=== PATIENT | male | born 1960 | race Caucasian/White ===

== ENCOUNTER → 2025-10-09 13:25 | Outpatient (REF) | payer MEDICARE, OTHER, SELFPAY | LOC: HWRAD 13:25 | PROVIDERS: ATTENDING PHYSICIAN Orthopaedic Surgery Hand Surgery | DX: M25.511 Pain in right shoulder (principal) | CPT/HCPCS: 73200 ==

== ENCOUNTER 2025-11-15 06:16 | Day surgery (SDC) | payer MEDICARE, OTHER, SELFPAY ==
[2025-10-23 12:11] LABS: Hematocrit 43.7 % (39.0-52.0); Hemoglobin 14.1 g/dL (13.0-18.0); Mean Corp Hgb Conc. 32.3 g/dL (33.0-37.0); Mean Corpuscular Volume 89.4 fL (80.0-94.0); Platelet Count 189 10^3/uL (130-400); Red Cell Dist. Width 12.8 % (11.5-14.5)
[2025-10-23 13:01] LABS: ALT (SGPT) 35 U/L (0-50); AST (SGOT) 25 U/L (17-59); Albumin 4.5 g/dl (3.5-5.0); Alkaline Phosphatase 69 U/L (38-126); Blood Urea Nitrogen 22 mg/dl (9-20); Calcium 9.9 mg/dl (8.4-10.2); Carbon Dioxide 31 mmol/L (22-30); Chloride 105 mmol/L (98-107); Glucose 83 mg/dl (70-99); Potassium 5.1 mmol/L (3.5-5.1); Sodium 141 mmol/L (135-145); Total Protein 7.7 g/dl (6.3-8.2); eGFR > 60.00
[2025-10-23 14:21] LABS: Glycohemoglobin (HgbA1c) 5.9 % (4.0-5.9)
[2025-10-23 14:26] VITALS: BMI 37.2
[2025-10-24 16:19] VITALS: BMI 37.2
--- NOTE | 2025-11-06 11:14 | CM ---
Orthopedic Case Management Assessment
Demographics: confirmed
Living situation: Patient lives with spouse in a one story home, with no steps to enter, patient is independent with adl's and ambulation. Patient has a shower chair and cane in home.
Support Person Post Operatively: spouse to assist with transportation.
History of
VN: No
SNF: No
Outpatient No
Has patient purchased required equipment: Patient has a sling.
PCP: Dr. Dickson Chaves
Pharmacy: [facility] [place]
Post Operative Discharge Plan: Patient for same day surgery on 11/15/25 for right TSA, with Dr. Garay, patient reports his spouse will provide transport for patient and patient has his sling.
--- NOTE | 2025-11-07 10:03 | SLEEP.APNEA ---
Sleep Apnea Order
-
Patient screened as High Risk for Sleep Apnea on [employer] Questionnaire. Patient referred to [facility] for Pre-Study.

Name: JOHAN BUTLER
: 1960
Home Phone: Use [employer]PrimaryPhone instead
Cell Phone: [f_Reg Other Phone]
Work Phone:
Address: [address] [place] [address]
City: [place]
State: [place]
Zip: [f_[facility] Zip]
Family Physician: Johan Chaves
Height 5 ft 8 in
Actual Weight 111 kg
Body Mass Index (BMI) 37.2
Ordering Provider: Radha Bonilla PA-C
[2025-11-15] VITALS (9 sets, daily range): BP systolic 115–143; BP diastolic 64–85; BMI 37.2
[2025-11-15] MEDS: CELEBREX 200 MG PO (12:27)
[2025-11-15] MEDS: TYLENOL 1000 MG PO (12:27)
[2025-11-15] MEDS: NORMOSOL-R/PLASMALYTE-A 1000 IV (12:34)
[2025-11-15] MEDS: DILAUDID 0.25 MG IV (17:03)
[2025-11-15] MEDS: ANCEF 5 IV (18:31)
== END 2025-11-15 18:36 | disposition home or self-care (01) ==
LOC: SDS 06:16
PROVIDERS: ATTENDING PHYSICIAN Orthopaedic Surgery Hand Surgery; FAMILY PHYSICIAN Orthopaedic Surgery; OTHER PHYSICIAN Family Medicine; OTHER PHYSICIAN Physician Assistant; REFERRING PHYSICIAN Internal Medicine Cardiovascular Disease
DX: M19.011 Primary osteoarthritis, right shoulder (principal)
CPT/HCPCS: 23472; 36415; 73020; 80053; 83036; 85027; 87070; C1713; C1776

== ENCOUNTER → 2025-11-29 11:35 | Outpatient (REF) | payer MEDICARE, OTHER, SELFPAY | LOC: HWRAD 11:35 | PROVIDERS: ATTENDING PHYSICIAN Physician Assistant Surgical | DX: Z47.89 Encounter for other orthopedic aftercare (principal) | CPT/HCPCS: 73200 ==